=== PATIENT | male | born 2000 | race Caucasian/White ===

== ENCOUNTER 2024-09-29 05:38 | Emergency (ER) | payer OTHER, SELFPAY ==
[2024-09-29 05:43] VITALS: BP 154/88; PULSE 68; RESP 15; TEMP 36.1; O2SAT 98; BMI 25.7
--- NOTE | 2024-09-29 05:51 | XRR_ITS ---
PROCEDURE INFORMATION: Exam: XR Right Ankle Exam date and time: 09/29/2024 5:55 AM Age: 24 years old Clinical indication: Pain and injury or trauma; Other: Rolled ankle; Sprain or strain; Right; Patient HX: C/O worsening pain since rolling RT ankle yesterday when playing basketball. ; Additional info: R ankle inj swelling TECHNIQUE: Imaging protocol: Radiologic exam of the right ankle. Views: 3 or more views. COMPARISON: No relevant prior studies available. FINDINGS: Bones/joints: Normal. Soft tissues: Soft tissue swelling. XR/XR ankle RT min 3V* [id number] IMPRESSION: Negative for fractures.
--- NOTE | 2024-09-29 06:00 | ED_ITS ---
HPI - Extremity Problem General: Chief complaint: Extremity Injury, Lower Stated complaint: rolled Right ankle Time Seen by Provider: 09/29/24 05:48 History of Present Illness: 24-year-old male presents to the emergen cy room after having a right ankle injury. He was playing basketball and an inversion injury. He did this yesterday afternoon around 2 or 3 in the afternoon and since then he has been up and active and walking on it worked overnight. He is bothered by the swelling discomfort there. Associated symptoms: Deny chest pain, fever(s) or rash Related Data Allergies Allergy/AdvReac Type Severity Reaction Status Date / Time No Known Allergies Allergy Verified 09/29/24 05:43 Review of Systems Const: Denies: fever(s) or chills Card: Denies: chest pain Resp: Denies: dyspnea GI: Denies: abdominal pain : Denies: dysuria, urinary frequency or urinary urgency Musc: Denies: neck pain or back pain Skin/Breast: Denies: rash Physical Exam Const: COMMON NORMALS: no acute distress GENERAL APPEARANCE: cooperative and comfortable ORIENTATION/CONSCIOUSNESS: Yes awake, Yes oriented to person, Yes oriented to place and Yes oriented to time HENMT: COMMON NORMALS: normocephalic, atraumatic and hearing grossly normal bilaterally HEAD & SCALP: normocephalic and atraumatic Resp: COMMON NORMALS: normal respiratory effort, No retractions, No use of accessory muscles and clear to auscultation bilaterally AUSCULTATION: clear to auscultation bilaterally Cardio: COMMON NORMALS: regular rate, regular rhythm and No murmurs present (Cardio) RATE: regular rate RHYTHM: regular rhythm GI: COMMON NORMALS: Soft to palpation and No hepatosplenomegaly present AUSCULTATION: Yes normoactive bowel sounds PALPATION: Yes Soft to palpation, No Tenderness to palpation present (GI), No Guarding due to palpation present (GI) and Yes No hepatosplenomegaly present Extremity: COMMON NORMALS: normal to inspection, capillary refill normal, no clubbing, cyanosis or edema, no calf tenderness and no pedal edema OTHER: Lateral swelling anterior to the lateral malleolus. No ecchymosis no deformity. Examination of the foot sensation intact neurovascularly intact. Dorsum plantarflexion strength in the right foot is 5 of 5. No pain with palpation along the fifth metatarsal medial or lateral malleolus no pain with compression of the proximal tib-fib region. Neuro: SENSORIUM/ORIENTATION: Yes oriented to person, Yes oriented to place and Yes oriented to time Skin: COMMON NORMALS: no rashes or lesions noted GENERAL SKIN EXAM: no rashes or lesions noted Course Vital Signs: Vital signs: Vital Signs Temperature 97.0 F L 09/29/24 05:43 Pulse Rate 74 09/29/24 06:28 Respiratory Rate 16 09/29/24 06:28 Blood Pressure 144/70 09/29/24 06:28 Pulse Oximetry 98 09/29/24 06:28 Oxygen Delivery Me thod Room Air 09/29/24 05:43 MDM - Extremity (Nontraumatic) Medical Decision Making No acute fracture on x-ray. Patient has already been ambulating use NSAIDs ibuprofen and Aleve as needed. Can ice elevate he already has it wrapped with a commercial compression splint offered to wrap with an Simeon wrap or he can continue to use this ice and elevate follow-up as needed can continue to maintain activity level as tolerated Lab Data Radiology Impressions Ankle X-Ray 09/29/24 05:51 IMPRESSION: Negative for fractures. All radiology interpretation(s) finalized by discharge Discharge Plan Discharge Patient Disposition: Home Clinical Impression: Ankle sprain and strain Condition: Stable Discharge Orders: Discharge ED (Routine); Ordered 09/29/24 Ordered By: Montez Palumbo Discharge Diet: Usual diet Discharge Activity: Increase activity as tolerated Patient Instructions: Ankle Sprain (ED), Opioid Safety, Pain Management Activity Restrictions/Additional Instructions: Thank you for choosing [facility] for your healthcare needs today. It is very important that you follow up as instructed or that you return to the Emergency Department should you have concerns or if your condition changes or worsens in any way. Patient emergency room for an ankle sprain. X-ray does not show any acute fractures. Recommend anti-inflammatory such as Aleve or ibuprofen as needed. You can weight-bear as tolerated. Icing the ankle elevating or wrapping with an Siemon wrap can be helpful. Stand Alone Forms: Work/School Release Coding Level of Care Code ED [employer]
[2024-09-29 06:28] VITALS: BP 144/70; PULSE 74; RESP 16; O2SAT 98
== END 2024-09-29 06:29 | disposition home or self-care (01) ==
PROVIDERS: Emergency Provider Family Medicine
DX: S93.401A Sprain of unspecified ligament of right ankle, initial encounter (principal); X58.XXXA Exposure to other specified factors, initial encounter; Y93.67 Activity, basketball
CPT/HCPCS: 73610; 99283